=== PATIENT | female | born 2000 | race Two or more races ===

== ENCOUNTER 2023-08-09 00:38 | Emergency (ER) | payer SELFPAY ==
[2023-08-09 00:47] VITALS: BP 153/116; PULSE 127; RESP 17; TEMP 36.3; O2SAT 98
--- NOTE | 2023-08-09 00:55 | ED.BACK ---
HPI - Back Pain/Injury General Chief Complaint: Back Pain/Injury Stated Complaint: back pain, hx of spinal stenosis in lumbar region Time Seen by Provider: 08/09/23 00:59 History of Present Illness HPI Narrative: 23-year-old female presents to emergency department for acute on chronic back pain for 3 weeks. Patient states she has known lumbar stenosis and has been evaluated by a neurosurgeon at [facility] many years ago. She is to be on pain medications for her back pain but is no longer on them. She is reporting diffuse pain to her low back that radiates down both of her legs with intermittent numbness to her legs. She denies dysuria, hematuria, abdominal pain, nausea vomiting, fever, saddle anesthesia, bowel or bladder incontinence or retention, use of steroids or immunosuppression. She is also saying that sometimes her left hand gets numb intermittently for about 3 weeks that is worse with certain positions. Denies current numbness in her hand. Denies recent injury or trauma to her wrist or back. Related Data Home Medications Medication Instructions Recorded Confirmed gabapentin 300 mg capsule 03/31/19 meloxicam 7.5 mg tablet 03/31/19 meloxicam 7.5 mg tablet 03/31/19 Allergies Allergy/AdvReac Type Severity Reaction Status Date / Time dexmethylphenidate Allergy Mild hives Verified 03/31/19 00:36 Review of Systems Review of Systems: CONSTITUTIONAL: Denies fever, chills, or sweats. EYES: Denies visual changes, redness, or discharge. ENT: Denies rhinorrhea, congestion, sore throat, or otalgia. CARDIOVASCULAR: Denies chest pain, palpitations, or edema. RESPIRATORY: Denies cough or dyspnea. GASTROINTESTINAL: Denies abdominal pain, nausea, vomiting, or diarrhea. GENITOURINARY: Denies dysuria or hematuria. SKIN: Denies rash or itching. MUSCULOSKELETAL: See HPI NEUROLOGIC: Denies headache, numbness, or weakness. PSYCHIATRIC: Denies anxiety or depression. [facility] Past Medical History Medical History Lumbar stenosis Surgical History Surgical History No pertinent past surgical history Social History Social History Smoking status: Never smoker Exam Narrative: GENERAL: Well-appearing, well-nourished, and in no acute distress. HEAD: Normocephalic, atraumatic. EYES: PERRLA and EOMI. ENT: Nares clear, no rhinorrhea or epistaxis. Mucous membranes moist. NECK: No midline spinous tenderness, step-offs or deformities. BACK: Diffuse tenderness throughout the lower back including the lumbar spine, paraspinous muscles and flanks. No overlying skin changes, step-offs or deformities. Positive straight leg raise bilaterally. CHEST: Clear to auscultation. No respiratory distress. HEART: Regular rate and rhythm. No murmur heard. Normal peripheral pulses. ABDOMEN: Soft, nontender, nondistended, normal active bowel sounds. EXTREMITIES: Normal range of motion. No edema. 4/5 hip flexion bilaterally. 5/5 strength with dorsiflexion plantar flexion. Sensation intact throughout. No saddle anesthesia. Patient ambulatory without ataxia. LUE: Radial pulse 2 +, cap refill less than 2, sensation intact throughout. Full range of motion of wrist and fingers. No tenderness to wrist or hand. Positive Tinel's sign and positive Phalen sign. SKIN: Warm, dry, no rash. NEURO: No focal deficits. Alert and oriented x3 Course Vital Signs Vital signs: Vital Signs Temperature 97.3 F L 08/09/23 00:47 Pulse Rate 127 H 08/09/23 00:47 Respiratory Rate 17 08/09/23 00:47 Blood Pressure 153/116 H 08/09/23 00:47 Pulse Oximetry 98 08/09/23 00:47 Temperature 97.3 F L 08/09/23 00:47 Pulse Rate 106 H 08/09/23 01:35 Respiratory Rate 18 08/09/23 01:35 Blood Pressure 129/79 08/09/23 01:35 Pulse Oximetry 97 08/09/23 01:35
[2023-08-09] MEDS: CYCLOBENZAPRINE HCL 10 MG TABLET PO (01:06)
[2023-08-09] MEDS: LIDOCAINE 5% PATCH 1 PATCH TRANSDERM (01:06)
[2023-08-09] MEDS: KETOROLAC 30 MG/ML VIAL (*BKC) IM (01:06)
[2023-08-09 01:26] LABS: Appearance Urine Clear (Clear); Bacteria Urine Rare /hpf; Bilirubin Urine Negative (Negative); Blood Urine Negative (Negative); Color Urine Yellow (Yellow); Glucose Urine UA 3+ mg/dL (Negative); Ketones Urine Negative (Negative); Leukocyte Esterase Ur Negative LEU/UL (Negative); Need Manual Microscopic Reviewed; Nitrate Urine Negative (Negative); Non Pathogenic Casts 0-2; Protein Urine Trace mg/dL (Negative); Squamous Epithelial Cell Urine Few /hpf (Few)
[2023-08-09 01:30] LABS: Specific Grav Ur 1.034 (1.001-1.035)
[2023-08-09 01:31] LABS: Add Urine Microscopic? YES
[2023-08-09 01:35] VITALS: BP 129/79; PULSE 106; RESP 18; O2SAT 97
[2023-08-09] MEDS: dexAMETHasone SOD PHOS INJ 10 MG/ML 1 ML VIAL IM (02:15)
[2023-08-09] MEDS: GABAPENTIN 300 MG CAPSULE PO (02:16)
[2023-08-09 02:35] VITALS: BP 127/81; PULSE 100; RESP 18; O2SAT 97
== END 2023-08-09 02:35 | disposition home or self-care (01) ==
PROVIDERS: Emergency Provider Physician Assistant
DX: M48.061 Spinal stenosis, lumbar region without neurogenic claudication (principal); M54.16 Radiculopathy, lumbar region; G56.02 Carpal tunnel syndrome, left upper limb; G89.29 Other chronic pain
CPT/HCPCS: 81001; 81025; 87086; 87088; 96372; 99284; A9270; J1100; J1885